=== PATIENT | female | born 1980 | race Caucasian/White ===

== ENCOUNTER → 2018-04-25 | Outpatient (CLI) | payer OTHER | END | disposition home or self-care (01) | LOC: KCIC 09:30 | DX: M79.672 Pain in left foot (principal) | CPT/HCPCS: 73630 ==

== ENCOUNTER 2019-02-19 18:45 | Emergency (ER) | payer OTHER ==
[~2019-02-19] VITALS: Ht 165.1 cm; Wt 139.7 kg
[2019-02-19 19:12] VITALS: BP 136/92
[2019-02-19] MEDS ORDERED: HYDROcodone/APAP 5/325MG 1 TAB TABLET PO ONE (19:45)
[2019-02-19] MEDS ORDERED: HYDR-3164 PO (19:57)
--- NOTE | 2019-02-19 19:57 | PHYS DOC ---
Past Medical History Past Medical History: No Pertinent History, Hypertension, Hypothyroid Additional Past Medical Histor: ADHD Past Surgical History: Additional Past Surgical Histo: LAP- BAND Alcohol Use: Occasionally Drug Use: None Adult General Chief Complaint Chief Complaint: KNEE INJURY HPI HPI Patient is a 38 year old female who presents with right knee pain. Patient states that she was at [employer] this afternoon when she twisted her right knee and heard a 'pap'. Patient's right knee went medially and her foot went out laterally. Patient states that she was initially able to bear weight on her right leg, however, the pain has gotten significantly worse throughout the day. Patient states that the pain is worse with walking and bending. Patient reports that the pain is located diffusely throughout her knee. Patient notes that the pain is constant, throbbing, aching and currently rates it to be 10/10. Patient states that the pain radiates down to her perales with walking. Patient denies sustaining any other injuries. Patient denies any prior injuries to her right knee. Patient denies sustaining any prior injuries to his right knee. Patient states that she has been icing her knee at home and took 600mg ibuprofen around four o'clock this afternoon without relief. Review of Systems Review of Systems Constitutional: Denies fever or chills Eyes: Denies change in visual acuity,or eye pain HENT: Denies nasal congestion or sore throat Respiratory: Denies cough or shortness of breath Cardiovascular: Denies chest pain or palpitations. GI: Denies abdominal pain, nausea, vomiting, or diarrhea : Denies dysuria or hematuria Musculoskeletal: Denies back pain or joint pain Integument: Denies rash or skin lesions Neurologic: Denies headache, focal weakness or sensory changes Complete systems were reviewed and found to be within normal limits, except as documented in this note. Current Medications Current Medications Current Medications Medications (Trade) Dose Ordered Sig/Eryn Start Time Stop Time Status Last Admin Dose Admin Acetaminophen/ Hydrocodone Bitart (Lortab 5/325) 1 tab 1X ONCE 02/19/19 19:45 02/19/19 19:46 DC 02/19/19 19:38 1 TAB Allergies Allergies Allergies Coded Allergies Type Severity Reaction Last Updated Verified No Known Drug Allergies 02/19/19 No Physical Exam Physical Exam Constitutional: Well developed, well nourished, no acute distress. HENT: Normocephalic, atraumatic, oropharynx moist. Eyes: PERRL, conjunctiva normal. Neck: Normal range of motion, no tenderness, supple. Cardiovascular:Heart rate regular rhythm, no murmur Lungs & Thorax: Bilateral breath sounds clear to auscultation Abdomen: Soft, no tenderness. Skin: Warm, dry. Back: No tenderness, no CVA tenderness. Extremities: Diffuse tenderness of the anterior and posterior aspects of the right knee. Subjective pain with flexion and extension of right knee. Subjective pain with varus and valgus testing of right knee, but no laxity appreciated. Negative anterior and posterior drawer sign of right knee. No ecchymosis, edema, or erythema noted. Distal pulses intact. Neurologic: Alert and oriented X 3, normal motor function, normal sensory function, no focal deficits noted. Psychologic: Affect normal. Speech normal. Current Patient Data Vital Signs Vital Signs Date Time Temp Pulse Resp B/P (MAP) Pulse Ox O2 Delivery O2 Flow Rate FiO2 02/19/19 19:12 98.3 89 18 136/92 (107) 97 Room Air 98.3 EKG EKG [] Radiology/Procedures Radiology/Procedures [] Course & Med Decision Making Course & Med Decision Making Patient is a 38 year old female who presents to the ED for evaluation of right knee pain. Right knee x-ray ordered due to trauma sustained today. Patient treated with 1 Hydrocodone tablet in the ED for pain. Right knee xray ordered and reviewed which did not reveal any obvious abnormality. Ice pack placed on right knee. Right knee placed in an ashwin bandage for support and crutches were given. Patient was instructed in crutch walking. Patient instructed to take NSAIDs at home for inflammation and pain. Prescription for 6 Hydrocodone tablets given for breakthrough pain. Patient stable for discharge with outpatient follow-up with PCP. Discussed findings and plan with patient and family, who acknowledge understanding and agreement. Orthopedic referral given. Dragon Disclaimer Dragon Disclaimer This electronic medical record was generated, in whole or in part, using a voice recognition dictation system. Departure Departure Impression: Primary Impression: Knee sprain Disposition: 01 HOME, SELF-CARE Condition: STABLE Referrals: CRYSTAL ADAMS PA-C (PCP) SHIRLEY DOBSON MD Patient Instructions: Crutch Use, Tiac-[id number]-[id number], Knee Sprain, Knee Wraps ( Elastic Bandage) and RICE Additional Instructions: Continue use of over the counter Ibuprofen. Scripts Hydrocodone/Apap 5-325 (NORCO 5-325 TABLET) 1 Each Tablet 1 TAB PO PRN Q6HRS PRN for PAIN, #6 TAB 0 Refills Prov: FAZAL HERNANDEZ DO 02/19/19 Problem Qualifiers Primary Impression: Knee sprain Encounter type: initial encounter Involved ligament of knee: unspecified ligament Laterality: right Qualified Codes: S83.91XA - Sprain of unspecified site of right knee, initial encounter FAZAL HERNANDEZ DO Feb 19, 2019 19:57
--- NOTE | 2019-02-20 08:29 | RAD ---
KNEE RIGHT 3V History: Injury, knee pain Comparison: None. Findings: 3 views of the left knee are submitted. There is suprapatellar joint effusion. No acute fracture is identified by radiographs. Impression: 1. There is suprapatellar joint effusion. No acute fracture is identified by radiographs. Electronically signed by: Santosh Fritz MD (02/20/2019 8:26 AM) [id number]
== END 2019-02-19 20:14 | disposition home or self-care (01) ==
LOC: ER 18:45
DX: S83.91XA Sprain of unspecified site of right knee, initial encounter (principal); I10 Essential (primary) hypertension; E03.9 Hypothyroidism, unspecified; X50.9XXA Other and unspecified overexertion or strenuous movements or postures, initial encounter; Y93.89 Activity, other specified; Y92.89 Other specified places as the place of occurrence of the external cause; Y99.8 Other external cause status
CPT/HCPCS: 73562; 99283

== ENCOUNTER → 2021-03-04 | Outpatient (CLI) | payer OTHER ==
[~2021-03-04] MED LIST: HYDR-3164 PO
--- NOTE | 2021-03-04 11:08 | RAD ---
EXAM: OBSTETRIC ULTRASOUND. HISTORY: anatomy survey, high risk . COMPARISON: None. FINDINGS: Sonographic evaluation of the uterus, fetus and maternal pelvis was performed. There is a single fetus in vertex presentation. heart rate is 131 bpm. Estimated gestational ag e based on measurements is 20 weeks 4 days. Head circumference, biparietal diameter, abdominal circum ference and femur length are commensurate. The placenta is anterior. The placenta is borderline low-lying, with its margin 2.2 cm from the inter nal os. There is no previa. Amniotic fluid volume appears normal with amniotic fluid index 12.1 cm. T he cervix is closed and measures 7.2 cm. Visualization of the anatomy was limited by body habitus. Visualization of anatomic structures is difficult. The posterior fossa is grossly unremarkable. No hydrocephalus is seen. Images of the sp ine reveal no gross defects. The heart appears to be four-chamber on real-time scanning, but this is not well seen on static images. The stomach and bladder are visualized. The cord insertion appears no rmal. The cord is three-vessel. Images of the kidneys reveal no hydronephrosis. Nose/lip morphology i s grossly abnormal. The nasal bone appears normal. The maternal adnexa are obscured by positioning currently. IMPRESSION: 1. Single fetus in vertex presentation. heart rate 131 bpm. Estimated gestational age based on measurements 20 weeks 4 days. 2. Assessment of anatomy is limited by body habitus. Most structures are not well seen on stati c images. No abnormalities are identified. 3. Borderline low-lying placenta, with margin 2.2 cm from the internal os. Electronically signed by: Merari Cabral MD (03/04/2021 11:06 AM) [id number]
== END ==
LOC: US 09:36
PROVIDERS: ATTEND Obstetrics & Gynecology
DX: O26.842 Uterine size-date discrepancy, second trimester (principal); O09.92 Supervision of high risk pregnancy, unspecified, second trimester; Z3A.20 20 weeks gestation of pregnancy
CPT/HCPCS: 76805

== ENCOUNTER → 2021-04-17 | Outpatient (CLI) | payer OTHER ==
[~2021-04-17] VITALS: Ht 167.6 cm; Wt 139.7 kg
[2021-04-17 09:07] LABS: BASO # 0.1 x10^3/uL (0.0-0.2); BASO % 1 % (0-3); EOS # 0.1 x10^3/uL (0.0-0.7); EOS % 1 % (0-3); HEMATOCRIT 31.6 % (36.0-47.0); HEMOGLOBIN 10.3 g/dL (12.0-15.5); LYMPH # 2.2 x10^3/uL (1.0-4.8); LYMPH % 17 % (24-48); MEAN CORPUSCULAR HEMOGLOBIN 25 pg (25-35); MEAN CORPUSCULAR HGB CONC 33 g/dL (31-37); MEAN CORPUSCULAR VOLUME 75 fL (79-100); MONO # 0.9 x10^3/uL (0.0-1.1); MONO % 7 % (0-9); NEUT % 75 % (31-73); PLATELET COUNT 314 x10^3/uL (140-400); RED BLOOD COUNT 4.19 x10^6/uL (3.50-5.40); RED CELL DISTRIBUTION WIDTH 15.7 % (11.5-14.5); WHITE BLOOD COUNT 13.3 x10^3/uL (4.0-11.0)
== END | disposition home or self-care (01) ==
LOC: LAB 08:33
PROVIDERS: ATTEND Obstetrics & Gynecology
DX: O09.92 Supervision of high risk pregnancy, unspecified, second trimester (principal); R94.6 Abnormal results of thyroid function studies; Z3A.26 26 weeks gestation of pregnancy; Z67.41 Type O blood, Rh negative
CPT/HCPCS: 36415; 84443; 85025; 86850; 86900; 86901; 96372; J2790

== ENCOUNTER → 2021-06-19 | Outpatient (CLI) | payer OTHER ==
--- NOTE | 2021-06-19 10:14 | KCIC ---
EXAM: OB ULTRASOUND, > 14 WEEKS HISTORY: Low lying placenta follow-up. weight and YANY assessment. COMPARISON: 03/04/2021 TECHNIQUE: Multiple grayscale images, color Doppler, and M-mode images of the uterus are obtained. FINDINGS: There is a single intrauterine gestation in cephalic presentation. The placenta is anterior in locati on without evidence of placenta previa. The amount of amniotic fluid appears appropriate. Amniotic f luid index is 11.1 cm. Cervical length is 5.63 cm. Biometrical data: BPD = 9.51 cm for 38 weeks 6 days. HC = 33.92 cm for 39 weeks 0 days. AC = 33.32 cm for 37 weeks 2 days. FL = 7.38 cm for 37 weeks 5 days. HC/AC ratio = 1.02. Overall, the estimated sonographic gestational age is 38 weeks and 2 days for an estimated date of de livery of 07/01/2021. The estimated date of delivery provided by the last menstrual period is 07/18/2021 . Estimated weight is 3294 grams. The estimated heart rate is 140 beats per minute. The anatomy is not well assessed due to maternal body habitus and late gestational age. The stomach, bladder and kidneys are unremarka ble. There is normal body motion. The maternal adnexal regions are obscured. IMPRESSION: 1. Single intrauterine fetus in cephalic presentation with a normal heart rate and gestational age ba sed on ultrasound measurements of 38 weeks and 2 days. The estimated weight is at the 77th perc entile for a gestational age of 35 weeks and 6 days based on LMP. 2. No evidence of placenta previa or low-lying placenta. 3. Normal YANY of 11.1 cm. 4. Suboptimal evaluation of the anatomy due to late gestational age and maternal body habitus. The anatomy is characterized on an anatomy survey performed 03/04/2021. Electronically signed by: Malinda Balbuena MD (06/19/2021 10:12 AM) [id number]
== END ==
LOC: KCIC US 08:33
PROVIDERS: ATTEND Obstetrics & Gynecology
DX: O26.843 Uterine size-date discrepancy, third trimester (principal); Z3A.38 38 weeks gestation of pregnancy
CPT/HCPCS: 76815